=== PATIENT | male | born 1995 | race Caucasian/White ===

== ENCOUNTER 2017-10-19 12:26 | Observation (INO) ==
[2017-10-19 13:09] LABS: Basophils % 0.2 % (0.0-0.8); Eosinophils # 0.1 10*3/uL (0.0-0.87); Eosinophils % 0.6 % (0.00-10.9); Hematocrit 45.8 VOL% (42.0-52.0); Hemoglobin 15.2 GM/DL (14.0-18.0); Immature Granulocytes % 0.4 %; Immature Granulocytes Absolute 0.04 #; Lymphocytes # 2.4 10*3/uL (1.4-4.0); Lymphocytes % 21.9 % (21.2-54.2); Mean Corpuscular HGB Conc 33.2 GM/DL (32-36); Mean Corpuscular Hemoglobin 28 PG (27-34); Mean Corpuscular Volume 83.1 FL (87-102); Mean Platelet Volume 10.4 FL (9.6-12.0); Monocytes # 0.7 10*3/uL (0.11-0.8); Monocytes % 6.6 % (1.7-12.7); Neutrophils # 7.7 10*3/uL (1.4-7.4); Neutrophils % 70.3 % (38.7-73.9); Platelet Count 250 T/CUMM (130-400); Red Blood Count 5.51 MC/CUMM (3.8-5.5); Red Cell Distribution Width 11.9 % (9.3-17.3); White Blood Count 10.9 T/CUMM (4-12)
[2017-10-19 13:19] LABS: Apearance,Urine Slightly Hazy (Clear); Bilirubin,Urine Negative (Negative); Blood, Urine Negative (Negative); Glucose,Urine (UA) Negative (Negative); Ketones,Urine Negative (Negative); Mucus,Urine Many /LPF (Occasional); Nitrite,Urine Negative (Negative); Protein,Urine 30 MG/DL; Squamous Epithelial Cell,Urine Occasional /HPF (0-10); Urine Color Amber (Yellow); Urine Specific Gravity 1.031 (1.001-1.035); Urine Urobilinogen 0.2 EU/DL (0.2-1.0); WBC,Urine 1 /HPF (0-6)
[2017-10-19 13:37] LABS: Albumin 3.9 G/DL (3.4-5.0); Bilirubin,Total 1.2 MG/DL (0.2-1.0); Osmolality,Calculated 278.5 MOS/KG (273-304); Potassium 3.4 MMOL/L (3.5-5.1); Total Protein 8.4 G/DL (6.4-8.3)
[2017-10-19] MEDS ORDERED: ONDANSETRON 4 MG/2 ML VIAL IV STA (13:54)
[2017-10-19] MEDS ORDERED: MORPHINE 4 MG/1 ML VIAL IM STA (13:54)
[2017-10-19] MEDS ORDERED: ONDANSETRON 4 MG/2 ML VIAL ONE ×3 (13:56→20:11)
[2017-10-19] MEDS ORDERED: MORPHINE 4 MG/1 ML VIAL ONE (13:57)
[2017-10-19] MEDS ORDERED: MORPHINE 4 MG/1 ML VIAL IV STA (14:06)
[2017-10-19] MEDS ORDERED: ACETAMINOPHEN 325 MG TABLET PO PRN (15:25)
[2017-10-19] MEDS ORDERED: TISSUE ADHESIVE 1 EACH APPLICATOR TOP ONE (15:39)
[2017-10-19] MEDS ORDERED: LIDOCAINE 1%/EPI INJ 20 ML VIAL ONE (15:39)
[2017-10-19] MEDS ORDERED: BUPIVACAINE MPF 0.25% /EPI 30 ML VIAL ONE (15:39)
[2017-10-19] MEDS ORDERED: METOCLOPRAMIDE 10 MG TABLET PO ONE (16:08)
[2017-10-19] MEDS ORDERED: FAMOTIDINE 20 MG TABLET PO ONE (16:08)
[2017-10-19] MEDS ORDERED: KETOROLAC 15 MG/1 ML VIAL IV PRN (17:00)
[2017-10-19] MEDS: cefOXitin 2,000 MG in SYRINGE 1 EACH IV SCH ×2 (17:09→22:49)
[2017-10-19] MEDS: LACTATED RINGERS 1,000 ML IV SCH ×2 (17:15→21:34)
[2017-10-19] MEDS: MORPHINE 4 MG/1 ML VIAL IV PRN ×2 (17:25→23:35)
[2017-10-19] MEDS: ONDANSETRON 4 MG/2 ML VIAL IV PRN ×2 (17:32→22:38)
[2017-10-19] MEDS ORDERED: MORPHINE 10 MG/1 ML VIAL ONE (20:09)
[2017-10-19] MEDS: MORPHINE 10 MG/1 ML VIAL IV PRN ×5 (20:10→20:30)
[2017-10-19] MEDS ORDERED: ACETAMINOPHEN 1,000 MG/100 ML VIAL IV ONE (20:11)
[2017-10-19] MEDS ORDERED: SEVOFLURANE 1 UNIT/15 MINUTE INH ONE (20:11)
[2017-10-19] MEDS ORDERED: GLYCOPYRROLATE 0.4 MG/2 ML VIAL ONE (20:11)
[2017-10-19] MEDS ORDERED: PROPOFOL 200 MG/20 ML VIAL IV ONE (20:11)
[2017-10-19] MEDS ORDERED: NEOSTIGMINE 10 MG/10 ML VIAL ONE (20:11)
[2017-10-19] MEDS ORDERED: LIDOCAINE 1% 5 ML VIAL ONE (20:11)
[2017-10-19] MEDS ORDERED: KETOROLAC 30 MG/1 ML VIAL ONE (20:11)
[2017-10-19] MEDS ORDERED: ONDANSETRON 4 MG/2 ML VIAL IV PRN (20:12)
[2017-10-19] MEDS ORDERED: ROCURONIUM 100 MG/10 ML VIAL IV ONE (20:12)
[2017-10-19] MEDS ORDERED: fentaNYL 100 MCG/2 ML VIAL ONE (20:12)
[2017-10-19] MEDS ORDERED: SUCCINYLCHOLINE 200 MG/10 ML VIAL ONE (20:12)
[2017-10-20] MEDS: MORPHINE 4 MG/1 ML VIAL IV PRN ×2 (03:07→08:15)
[2017-10-20] MEDS: cefOXitin 2,000 MG in SYRINGE 1 EACH IV SCH ×2 (05:18→11:27)
[2017-10-20] MEDS: ONDANSETRON 4 MG/2 ML VIAL IV PRN (06:01)
[2017-10-20] MEDS: LACTATED RINGERS 1,000 ML IV SCH ×2 (06:03→07:34)
[2017-10-20] MEDS ORDERED: PANTOPRAZOLE 40 MG TABLET PO SCH (09:00)
[2017-10-20 09:34] VITALS: BP 144/85
== END 2017-10-20 12:59 | disposition home or self-care (01) | DRG 343 ==
LOC: N.ED 12:26 → INTOOBSV 15:25 → N.EDINP 15:25 → N.5E 16:16
PROVIDERS: ADMIT Surgery; ATTEND Surgery